=== PATIENT | male | born 1970 | race Caucasian/White ===

== ENCOUNTER 2023-08-31 05:55 | Day surgery (SDC) | payer BC ==
[2023-08-30 09:55] VITALS: BMI 29.9
[2023-08-31] MEDS ORDERED: Bupivacaine PF 0.5% 30 ML VIAL ONE (06:10)
[2023-08-31] MEDS ORDERED: EPINEPHrine 1 MG/ML VIAL ONE (06:10)
[2023-08-31] MEDS ORDERED: Thrombin 5000 UNITS/5 ML VIAL ONE (06:10)
[2023-08-31] MEDS ORDERED: PROPOFOL 20 ML ONE (06:27)
[2023-08-31] MEDS ORDERED: Lidocaine 1% PF 5 ML VIAL ONE ×2 (06:27→07:02)
[2023-08-31] MEDS ORDERED: Rocuronium Bromide 10 MG/ML (10ML VIAL) ONE ×2 (06:27→07:02)
[2023-08-31] MEDS ORDERED: fentaNYL PF 100 MCG/2 ML SYRINGE ONE ×2 (06:27→09:20)
[2023-08-31] MEDS ORDERED: Dexamethasone 20 MG/5 ML VIAL ONE ×2 (06:27→07:02)
[2023-08-31] MEDS ORDERED: Ondansetron PF 4 MG/2 ML Vial ONE ×2 (06:27→07:02)
[2023-08-31] MEDS ORDERED: CEFAZOLIN 2 GM VIAL ONE ×2 (06:45→11:17)
[2023-08-31] MEDS ORDERED: Sodium Chloride 0.9% 100 ML ONE ×2 (06:45→11:17)
[2023-08-31] MEDS ORDERED: Midazolam HCl 2 mg/2 ml Vial ONE (06:46)
[2023-08-31] MEDS ORDERED: Ketorolac Tromethamine 30 MG (1 mL) VIAL ONE ×2 (07:02→08:07)
[2023-08-31] MEDS ORDERED: Glycopyrrolate 0.2 MG/ML 5 ML SYRINGE ONE ×2 (07:02→08:09)
[2023-08-31] MEDS ORDERED: NEOSTIGMINE 3 MG/3 ML SYR 3 MG/3 ML SYRINGE ONE ×2 (07:02→08:09)
[2023-08-31] MEDS ORDERED: PHENYLEPHRINE-NS 100 MCG/ML 10 ML SYRINGE ONE ×2 (07:02→08:02)
[2023-08-31] MEDS ORDERED: PROPOFOL 200 MG/20 ML VIAL ONE (07:02)
[2023-08-31 07:12] LABS: Anion Gap 14 mmol/L (10-20); BUN (Urea Nitrogen) 14 mg/dL (8.4-25.7); Calc. Creatinine Clearance 123 mL/min (70-130); Calcium 9.8 mg/dL (7.8-10.44); Carbon Dioxide 24 mmol/L (22-29); Chloride 104 mmol/L (98-107); Estimated GFR 94; Glucose 95 mg/dL (70-105); Potassium 3.8 mmol/L (3.5-5.1); Sodium 138 mmol/L (136-145)
[2023-08-31] MEDS ORDERED: HYDROmorphone 2 MG/ML VIAL SLOW IVP PRN (08:06)
[2023-08-31] MEDS ORDERED: Ondansetron HCl/PF 4 MG/2 ML Vial IVP PRN (08:06)
[2023-08-31] MEDS ORDERED: Promethazine HCl 25 MG/ML VIAL IM PRN (08:06)
[2023-08-31] MEDS ORDERED: HYDROmorphone 2 MG/ML VIAL ONE (08:26)
[2023-08-31] MEDS ORDERED: HYDROmorphone 0.5 MG/0.5 ML SYRINGE ONE ×3 (08:37→09:02)
[2023-08-31] MEDS ORDERED: Tamsulosin HCl 0.4 MG CAP ONE (09:20)
[2023-08-31] MEDS ORDERED: fentaNYL 50 mcg/mL 1 mL Vial ONE (09:44)
[2023-08-31] MEDS ORDERED: Promethazine HCl 25 MG/ML VIAL ONE (11:07)
[2023-08-31] MEDS ORDERED: HYDROcodone/Acetaminophen 5/325 mg Tablet ONE (11:52)
== END 2023-08-31 12:00 | disposition home or self-care (01) ==
LOC: SDC 05:55
PROVIDERS: ATTEND Neurological Surgery
PROC: 00NY0ZZ Release Lumbar Spinal Cord, Open Approach (ICD-10-PCS; principal; 2023-08-31)
DX: M51.16 Intervertebral disc disorders with radiculopathy, lumbar region (principal); M71.30 Other bursal cyst, unspecified site; E78.5 Hyperlipidemia, unspecified; G89.29 Other chronic pain; M19.90 Unspecified osteoarthritis, unspecified site; I10 Essential (primary) hypertension; Z90.49 Acquired absence of other specified parts of digestive tract; Z90.89 Acquired absence of other organs; Z98.890 Other specified postprocedural states; Z79.899 Other long term (current) drug therapy; Z91.040 Latex allergy status
CPT/HCPCS: 80048; 93005; 93010; J0171; J1100; J1170; J1885; J2250; J2405; J2550; J2704; J3010; J3490; S0020